=== PATIENT | female | born 1990 | race Caucasian/White ===

== ENCOUNTER 2018-05-08 14:21 | Emergency (ER) | payer SELFPAY ==
--- NOTE | 2018-05-08 16:26 | ER ---
Nurse's Notes [facility] Name: Joana Montes Age: 27 yrs Sex: Female : 1990 Arrival Date: 05/08/2018 Time: 14:22 Bed 10 Private MD: Diagnosis: Otalgia;Acute pharyngitis Presentation: 05/08 14:23 Presenting complaint: Patient states: last week i had a cough, i woke up this morning hj with sore throat and pain on both ears; its hard to swallow; denies fever;. Transition of care: patient was not received from another setting of care. Onset of symptoms was May 08, 2018. Risk Assessment: Do you want to hurt yourself or someone else? Patient reports no desire to harm self or others. Initial Sepsis Screen: Does the patient meet any 2 criteria? No. Patient's initial sepsis screen is negative. Does the patient have a suspected source of infection? No. Patient's initial sepsis screen is negative. Care prior to arrival: None. 14:23 Method Of Arrival: Ambulatory 14:23 Acuity: ZAFAR 4 Triage Assessment: 14:25 General: Appears in no apparent distress. uncomfortable, Behavior is calm, cooperative, hj appropriate for age. Pain: Complains of pain in throat. 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 - Social history:: Smoking status: Patient/guardian denies using tobacco, Patient/guardian denies using alcohol. - Ebola Screening: : Patient negative for fever greater than or equal to 101.5 degrees Fahrenheit, and additional compatible Ebola Virus Disease symptoms Patient denies exposure to infectious person Patient denies travel to an Ebola-affected area in the 21 days before illness onset. Screenin:24 Abuse screen: Denies threats or abuse. Denies injuries from another. Nutritional hj screening: No deficits noted. Tuberculosis screening: No symptoms or risk factors identified. Fall Risk None identified. Assessment: 14:25 Respiratory: Airway is patent Respiratory effort is even, unlabored, Breath sounds are hj clear. 15:20 General: Appears in no apparent distress. Behavior is calm, cooperative. Pain: iw Complains of pain in sore throat. Neuro: Level of Consciousness is awake, alert, obeys commands. Cardiovascular: Patient's skin is warm and dry. Respiratory: Airway is patent. Derm: Skin is intact, is healthy with good turgor. Musculoskeletal: Range of motion: intact in all extremities. 16:00 EENT: Throat is reddened. iw Vital Signs: 14:25 BP 123 / 87; Pulse 98; Resp 18; Temp 98.4(O); Pulse Ox 100% on R/A; Weight 72.57 kg; hj Height 5 ft. 9 in. (175.26 cm); Pain 6/10; 14:25 Body Mass Index 23.63 (72.57 kg, 175.26 cm) hj ED Course: 14:22 Patient arrived in ED. as 14:24 Triage completed. hj 14:25 Arm band placed on right wrist. hj 15:03 Drew Shane PA is PHCP. [facility] 15:04 Remigio Armijo MD is Attending Physician. [facility] 15:11 Adriana Camara, RN is Primary Nurse. iw 16:30 Patient has correct armband on for positive identification. iw 16:34 No provider procedures requiring assistance completed. Patient did not have IV access iw during this emergency room visit. Administered Medications: No medications were administered Outcome: 16:26 Discharge ordered by MD. jmm 16:34 Discharged to home ambulatory. iw 16:34 Condition: good 16:34 Discharge instructions given to patient, Instructed on discharge instructions, follow up and referral plans. medication usage, Demonstrated understanding of instructions, follow-up care, medications, Prescriptions given X 1. 16:35 Patient left the ED. iw Signatures: Drew Shane PA PA jmm Martinez, Amelia as Adriana Camara, RN RN Leonard Gama RN RN Corrections: (The following items were deleted from the chart) 14:28 14:25 Pulse 98bpm; Resp 18bpm; Pulse Ox 100% RA; Temp 98.4F Oral; 72.57 kg; Height 5 hj ft. 9 in.; BMI: 23.6; Pain 6/10; hj
--- NOTE | 2018-05-08 16:27 | EDPHYS ---
Physician Documentation [facility] Name: Joana Montes Age: 27 yrs Sex: Female : 1990 Arrival Date: 05/08/2018 Time: 14:22 Bed 10 Private MD: ED Physician Remigio Armijo HPI: 05/08 15:47 This 27 yrs old Female presents to ER via Ambulatory with complaints of Sore jmm Throat. 15:47 The patient presents with sore throat. Onset: The symptoms/episode began/occurred this jmm morning. This is a 27 year old female with no chronic medical conditions that presents to the ED with complaints of bilateral ear pain and sore throat beginning this morning. Patient states she had a cough last week. Patient denies fever. . 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 - Social history:: Smoking status: Patient/guardian denies using tobacco, Patient/guardian denies using alcohol. - Ebola Screening: : Patient negative for fever greater than or equal to 101.5 degrees Fahrenheit, and additional compatible Ebola Virus Disease symptoms Patient denies exposure to infectious person Patient denies travel to an Ebola-affected area in the 21 days before illness onset. ROS: 15:47 Constitutional: Negative for fever, chills, and weight loss, Cardiovascular: Negative [facility] for chest pain, palpitations, and edema. 15:47 ENT: Positive for ear pain, sore throat. 15:47 Respiratory: Positive for cough. 15:47 All other systems are negative. Exam: 15:47 Constitutional: This is a well developed, well nourished patient who is awake, alert, jmm and in no acute distress. Head/Face: atraumatic. 15:47 Neck: Trachea midline, Supple Chest/axilla: Normal chest wall appearance and motion. 15:47 ENT: TM's: bulging, bilaterally, erythema, is not appreciated, Posterior pharynx: Uvula: midline, erythema, that is mild, exudate, is not appreciated. 15:47 Cardiovascular: Rate: normal, Rhythm: regular. 15:47 Respiratory: the patient does not display signs of respiratory distress, Respirations: normal, Breath sounds: are clear throughout. 15:47 Abdomen/GI: Inspection: abdomen appears normal. 15:47 Back: ROM is normal. 15:47 Musculoskeletal/extremity: ROM: intact in all extremities. 15:47 Skin: Appearance: Color: normal in color. 15:47 Neuro: Orientation: is normal, Mentation: is normal, Memory: is normal, Motor: is normal. 15:47 Psych: Behavior/mood is pleasant, cooperative. Vital Signs: 14:25 BP 123 / 87; Pulse 98; Resp 18; Temp 98.4(O); Pulse Ox 100% on R/A; Weight 72.57 kg; hj Height 5 ft. 9 in. (175.26 cm); Pain 6/10; 14:25 Body Mass Index 23.63 (72.57 kg, 175.26 cm) MDM: 15:45 Patient medically screened. [facility] 16:24 Data reviewed: vital signs, nurses notes. Counseling: I had a detailed discussion with caio the patient and/or guardian regarding: the historical points, exam findings, and any diagnostic results supporting the discharge/admit diagnosis, the need for outpatient follow up, to return to the emergency department if symptoms worsen or persist or if there are any questions or concerns that arise at home. ED course: Patient is alert and non toxic in appearance in the ED. Symptoms appear due to a viral syndrome. Patient advised to follow up with pcp and otherwise given strict return precautions. patient understood and agrees with the plan of care. . 05/08 14:27 Order name: Strep 05/08 14:27 Order name: Group A Streptococcus Rapid Sc; Complete Time: 15:46 EDMS 05/08 15:08 Order name: Throat Culture EDMS Administered Medications: No medications were administered Disposition: 18:17 Co-signature as Attending Physician, Remigio Armijo MD I agree with the assessment and wa plan of care. Disposition: 05/08/18 16:26 Discharged to Home. Impression: Otalgia, Acute pharyngitis. - Condition is Stable. - Discharge Instructions: Pharyngitis, Sore Throat. - Prescriptions for Medrol (Tae) 4 mg Oral Tablets, Dose Pack - take 1 tablet by ORAL route as directed - follow package instructions; 1 packet. - Medication Reconciliation Form, Thank You Letter, Antibiotic Education, Prescription Opioid Use, Work release form form. - Follow up: Private Physician; When: 2 - 3 days; Reason: Recheck today's complaints, Continuance of care, Re-evaluation by your physician. Signatures: Dispatcher [employer] EDMS Drew Shane PA PA jmm Williams, Irene, RN RN iw Joaquin, Henry, RN RN Remigio Armijo MD MD wa Corrections: (The following items were deleted from the chart) 16:35 16:26 05/08/2018 16:26 Discharged to Home. Impression: Otalgia; Acute pharyngitis. iw Condition is Stable. Forms are Medication Reconciliation Form, Thank You Letter, Antibiotic Education, Prescription Opioid Use. Follow up: Private Physician; When: 2 - 3 days; Reason: Recheck today's complaints, Continuance of care, Re-evaluation by your physician. caio
[2018-05-08 16:50] VITALS: BP 123/87; TEMP 98.4; O2SAT 100
== END 2018-05-08 16:35 | disposition home or self-care (01) ==
LOC: ER 14:21
DX: J02.9 Acute pharyngitis, unspecified (principal); H92.09 Otalgia, unspecified ear
CPT/HCPCS: 87070; 87081; 99282

== ENCOUNTER 2019-02-25 17:13 | Emergency (ER) | payer SELFPAY ==
[2019-02-25] MEDS ORDERED: LIDOCAINE 1% MPF 5 ML VIAL ONE (18:02)
--- NOTE | 2019-02-25 18:21 | EDPHYS ---
Physician Documentation [facility] Name: Joana Montes Age: 28 yrs Sex: Female : 1990 Arrival Date: 02/25/2019 Time: 17:17 Bed 9 Private MD: ED Physician Adam Fields HPI: 02/25 17:49 This 28 yrs old Female presents to ER via Ambulatory with complaints of pkl Abscess. 17:58 The patient presents with an abscess of the abscess. Description: The affected area is pkl moderate sized, approximately 2 cm(s), fluctuant, tense. Onset: The symptoms/episode began/occurred 3 day(s) ago. Possible cause(s): unknown. Associated signs and symptoms: The patient has no apparent associated signs or symptoms. The patient has not experienced similar symptoms in the past. 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 - Social history:: Smoking status: Patient/guardian denies using tobacco, Patient uses alcohol, on a daily basis. - Ebola Screening: : No symptoms or risks identified at this time. ROS: 17:58 Eyes: Negative for injury, pain, redness, and discharge, ENT: Negative for injury, pkl pain, and discharge, Neck: Negative for injury, pain, and swelling, Cardiovascular: Negative for chest pain, palpitations, and edema, Respiratory: Negative for shortness of breath, cough, wheezing, and pleuritic chest pain, Abdomen/GI: Negative for abdominal pain, nausea, vomiting, diarrhea, and constipation, Back: Negative for injury and pain, : Negative for injury, bleeding, discharge, and swelling. 17:58 MS/extremity: Positive for pain, of the right upper posterior thigh, abscess. 17:58 Skin: Positive for abscess, of the right upper posterior thigh. 17:58 Neuro: Negative for altered mental status. Exam: 17:58 Head/Face: Normocephalic, atraumatic. Eyes: Pupils equal round and reactive to light, pkl extra-ocular motions intact. Lids and lashes normal. Conjunctiva and sclera are non-icteric and not injected. Cornea within normal limits. Periorbital areas with no swelling, redness, or edema. ENT: Nares patent. No nasal discharge, no septal abnormalities noted. Tympanic membranes are normal and external auditory canals are clear. Oropharynx with no redness, swelling, or masses, exudates, or evidence of obstruction, uvula midline. Mucous membranes moist. Neck: Trachea midline, no thyromegaly or masses palpated, and no cervical lymphadenopathy. Supple, full range of motion without nuchal rigidity, or vertebral point tenderness. No Meningismus. Chest/axilla: Normal chest wall appearance and motion. Nontender with no deformity. No lesions are appreciated. Cardiovascular: Regular rate and rhythm with a normal S1 and S2. No gallops, murmurs, or rubs. Normal PMI, no JVD. No pulse deficits. Respiratory: Lungs have equal breath sounds bilaterally, clear to auscultation and percussion. No rales, rhonchi or wheezes noted. No increased work of breathing, no retractions or nasal flaring. Abdomen/GI: Soft, non-tender, with normal bowel sounds. No distension or tympany. No guarding or rebound. No evidence of tenderness throughout. Back: No spinal tenderness. No costovertebral tenderness. Full range of motion. Neuro: Awake and alert, GCS 15, oriented to person, place, time, and situation. Cranial nerves II-XII grossly intact. Motor strength 5/5 in all extremities. Sensory grossly intact. Cerebellar exam normal. Normal gait. 17:58 Skin: abscess, that is moderate sized, approximately 2 cm(s), of the right upper posterior thigh. 17:58 Neuro: Orientation: is normal, Mentation: is normal, Cranial nerves: grossly normal, Cerebellar function: is grossly normal, normal finger to nose testing, heel to soto testing is normal, Motor: is normal, Gait: is steady. Vital Signs: 17:25 BP 124 / 86; Pulse 63; Resp 18; Temp 98; Pulse Ox 100% on R/A; Height 5 ft. 9 in. mg2 (175.26 cm); Procedures: 18:17 I \T\ D: Incision and drainage was performed for an abscess of the right posterior upper pkl thigh Prepped with Betadine, Anesthetized with 3 ml's 1% Lidocaine. Incised with #11 blade. Drained small amount purulent fluid. Packed with iodoform gauze, Dressing: sterile 4x4 gauze, the patient tolerated the procedure well. MDM: 17:49 Patient medically screened. pkl 18:17 Data reviewed: vital signs, nurses notes. pkl 02/25 18:31 Order name: Wound Culture iw Administered Medications: No medications were administered Disposition: 02/25/19 18:20 Discharged to Home. Impression: Abscess posterior right upper thigh. - Condition is Stable. - Prescriptions for Bactrim DS 800- 160 mg Oral Tablet - take 1 tablet by ORAL route every 12 hours for 7 days; 14 tablet. - Medication Reconciliation Form, Thank You Letter, Antibiotic Education, Prescription Opioid Use form. - Follow up: Leonard Martin MD; When: 2 - 3 days; Reason: Re-evaluation by your physician. - Problem is new. - Symptoms have improved. Signatures: Dispatcher [employer] EDMS Adam Fields MD MD pkl Adriana Camara RN RN iw Russ Guzmán RN RN mg2 Corrections: (The following items were deleted from the chart) 18:36 18:20 02/25/2019 18:20 Discharged to Home. Impression: Abscess posterior right upper iw thigh. Condition is Stable. Forms are Medication Reconciliation Form, Thank You Letter, Antibiotic Education, Prescription Opioid Use. Follow up: Leonard Martin; When: 2 - 3 days; Reason: Re-evaluation by your physician. Problem is new. Symptoms have improved. pkl
--- NOTE | 2019-02-25 18:21 | ER ---
Nurse's Notes [facility] Name: Joana Montes Age: 28 yrs Sex: Female : 1990 Arrival Date: 02/25/2019 Time: 17:17 Bed 9 Private MD: Diagnosis: Abscess posterior right upper thigh Presentation: 02/25 17:24 Presenting complaint: Patient states: i have abscess in my right thigh for 3 days now. mg2 probably its from a spider bite. Transition of care: patient was not received from another setting of care. Onset of symptoms was February 23, 2019. Risk Assessment: Do you want to hurt yourself or someone else? Patient reports no desire to harm self or others. Initial Sepsis Screen: Does the patient meet any 2 criteria? No. Patient's initial sepsis screen is negative. Does the patient have a suspected source of infection? No. Patient's initial sepsis screen is negative. Care prior to arrival: None. 17:24 Method Of Arrival: Ambulatory mg2 17:24 Acuity: ZAFAR 4 mg2 Triage Assessment: 18:30 General: Appears in no apparent distress. Behavior is calm. 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 - Social history:: Smoking status: Patient/guardian denies using tobacco, Patient uses alcohol, on a daily basis. - Ebola Screening: : No symptoms or risks identified at this time. Screenin:35 Abuse screen: Denies threats or abuse. Denies injuries from another. Nutritional iw screening: No deficits noted. Tuberculosis screening: No symptoms or risk factors identified. Fall Risk None identified. Assessment: 18:00 General: Appears in no apparent distress. Behavior is calm, cooperative. Pain: iw Complains of pain in buttocks. Neuro: Level of Consciousness is awake, alert, obeys commands, Oriented to person, place, time, situation. Derm: Abscess located on right gluteal fold is nickel sized. Musculoskeletal: Range of motion: intact in all extremities. Vital Signs: 17:25 BP 124 / 86; Pulse 63; Resp 18; Temp 98; Pulse Ox 100% on R/A; Height 5 ft. 9 in. mg2 (175.26 cm); ED Course: 17:17 Patient arrived in ED. mr 17:25 Triage completed. mg2 17:26 Arm band placed on. mg2 17:47 Adriana Camara, RN is Primary Nurse. iw 17:49 Adam Fields MD is Attending Physician. pkl 18:00 Patient has correct armband on for positive identification. iw 18:19 Leonard Martin MD is Referral Physician. pkl 18:35 Assist provider with I \T\ D: of an abscess on right Set up I\T\D tray. Performed by Adam Fields MD Culture sent to lab. Patient tolerated well. Patient did not have IV access during this emergency room visit. Administered Medications: No medications were administered Outcome: 18:20 Discharge ordered by . pkl 18:35 Discharged to home ambulatory. iw 18:35 Condition: good 18:35 Discharge instructions given to patient, Instructed on discharge instructions, follow up and referral plans. medication usage, Demonstrated understanding of instructions, follow-up care, medications, Prescriptions given X 1. 18:36 Patient left the ED. iw Addendum: 03/01/2019 07:39 Addendum: Culture Results: Positive wound culture. No further action required. Bacteria e b sensitive to prescribed antibiotic. Signatures: Adam Fields MD MD [facility] Na mr Adriana Camara, RN RN Hafsa Hollis Michele, RN RN mg2
[2019-02-25] MEDS ORDERED: SMZ./TMP. 800/160 MG TABLET ONE (18:36)
[2019-02-25 19:40] VITALS: BP 124/86; TEMP 98; O2SAT 100
== END 2019-02-25 18:36 | disposition home or self-care (01) ==
LOC: ER 17:13
PROC: 0J9L0ZZ Drainage of Right Upper Leg Subcutaneous Tissue and Fascia, Open Approach (ICD-10-PCS; principal; 2019-02-25)
DX: L02.415 Cutaneous abscess of right lower limb (principal)
CPT/HCPCS: 87070; 87077; 87186; 87205; 99283

== ENCOUNTER 2019-06-06 16:39 | Emergency (ER) | payer SELFPAY ==
[2019-06-06] MEDS ORDERED: LIDOCAINE 1% MPF 5 ML VIAL ONE (17:03)
[2019-06-06] MEDS ORDERED: TETANUS & DIPHTHERIA TOX,ADULT 0.5 ML VIAL ONE (17:04)
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
[2019-06-06 17:52] VITALS: BP 104/67; TEMP 97.7; O2SAT 99
== END 2019-06-06 17:40 | disposition home or self-care (01) ==
LOC: ER 16:39
PROC: 0JQH0ZZ Repair Left Lower Arm Subcutaneous Tissue and Fascia, Open Approach (ICD-10-PCS; principal; 2019-06-06)
DX: S51.812A Laceration without foreign body of left forearm, initial encounter (principal); Y04.2XXA Assault by strike against or bumped into by another person, initial encounter; Y93.9 Activity, unspecified; Y92.009 Unspecified place in unspecified non-institutional (private) residence as the place of occurrence of the external cause; Z23 Encounter for immunization
CPT/HCPCS: 90471; 90714; 99283

== ENCOUNTER 2020-03-10 00:23 | Emergency (ER) | payer SELFPAY ==
[2020-03-10] MEDS ORDERED: KETOROLAC 30 MG/ML INJ ONE (00:59)
[2020-03-10] MEDS ORDERED: dexAMETHasone 4 MG TAB ONE (00:59)
[2020-03-10] MEDS ORDERED: methocarbamoL 500 MG TAB ONE (00:59)
--- NOTE | 2020-03-10 01:47 | EDPHYS ---
Physician Documentation [facility] Name: Joana Montes Age: 29 yrs Sex: Female : 1990 Arrival Date: 03/10/2020 Time: 00:24 Bed 23 Private MD: ED Physician Rodrick Barksdale HPI: 03/10 00:40 This 29 yrs old Female presents to ER via Ambulatory with complaints of Arm ps1 Pain. 00:40 patient states that she has pain from her neck to her hands associated with numbness or ps1 decreased sensation below the elbow. Atraumatic. Laying in bed watching a movie when symptoms started. No fever or other FND. . Historical: - Allergies: 00:37 No Known Allergies; em - PMHx: 00:37 None; em - PSHx: 00:37 ; em - Immunization history:: Adult Immunizations up to date. - Social history:: Smoking status: Patient reports the use of cigarette tobacco products, denies chronic smoking, but will smoke occasionally. ROS: 00:40 Constitutional: Negative for fever, chills, and weight loss, Eyes: Negative for injury, ps1 pain, redness, and discharge, Cardiovascular: Negative for chest pain, palpitations, and edema, Respiratory: Negative for shortness of breath, cough, wheezing, and pleuritic chest pain, Abdomen/GI: Negative for abdominal pain, nausea, vomiting, diarrhea, and constipation, MS/Extremity: Negative for injury and deformity, Skin: Negative for injury, rash, and discoloration. 00:40 Neck: Positive for tenderness, of the right trapezius. 00:40 Neuro: Positive for numbness, of the right hand, right wrist and palmar aspect of right forearm. Exam: 00:40 Constitutional: This is a well developed, well nourished patient who is awake, alert, ps1 and in no acute distress. Head/Face: Normocephalic, atraumatic. Cardiovascular: Regular rate and rhythm. No gallops, murmurs, or rubs. Normal PMI, no JVD. No pulse deficits. Respiratory: Lungs have equal breath sounds bilaterally, clear to auscultation and percussion. No rales, rhonchi or wheezes noted. No increased work of breathing, no retractions or nasal flaring. Abdomen/GI: Soft, non-tender, with normal bowel sounds. No distension or tympany. No guarding or rebound. No evidence of tenderness throughout. Skin: Warm, dry with normal turgor. Normal color with no rashes, no lesions, and no evidence of cellulitis. 00:40 Neuro: Cranial nerves: grossly normal, Motor: is normal, Sensation: numbness, that is mild, of the palmar aspect of right forearm and right wrist and right hand. Vital Signs: 00:35 BP 143 / 99; Pulse 76; Resp 18; Pulse Ox 99% on R/A; Weight 77.11 kg; Height 5 ft. 9 em in. (175.26 cm); Pain 0/10; 00:39 Temp 98.2(O); em 00:35 Body Mass Index 25.10 (77.11 kg, 175.26 cm) em MDM: 00:57 Patient medically screened. ps1 01:47 Differential diagnosis: radiculopathy, ulnar neuropathy, stroke (unlikely), trap spasm, ps1 and other. Data reviewed: vital signs, nurses notes, radiologic studies, and as a result, I will discharge patient. Counseling: I had a detailed discussion with the patient and/or guardian regarding: the historical points, exam findings, and any diagnostic results supporting the discharge/admit diagnosis, radiology results, the need for outpatient follow up, a neurologist. 03/10 00:39 Order name: CT C Spine ps1 Administered Medications: 00:48 Drug: Decadron 8 mg Route: PO; em 01:58 Follow up: Response: No adverse reaction; Marked relief of symptoms; Pain is decreased em 00:48 Drug: TORadol - Ketorolac 15 mg Route: IM; Site: left deltoid; em 01:58 Follow up: Response: No adverse reaction; Marked relief of symptoms; Pain is decreased em 00:48 Drug: Robaxin 750 mg Route: PO; em 01:59 Follow up: Response: No adverse reaction; Marked relief of symptoms; Pain is decreased em Disposition: 03/10/20 01:46 Discharged to Home. Impression: Cervical radiculopathy, Ulnar mononeuropathy. - Condition is Stable. - Discharge Instructions: Cervical Radiculopathy. - Prescriptions for Anaprox DS 550 mg Oral Tablet - take 1 tablet by ORAL route every 12 hours As needed; 20 tablet. Robaxin 500 mg Oral Tablet - take 2 tablet by ORAL route every 6 hours As needed; 40 tablet. Medrol (Tae) 4 mg Oral Tablets, Dose Pack - take 1 tablet by ORAL route as directed - follow package instructions; 1 packet. - Medication Reconciliation Form, Thank You Letter, Antibiotic Education, Prescription Opioid Use form. - Follow up: Steven Coon MD; When: 24 Hours; Reason: Recheck today's complaints, Continuance of care, Re-evaluation by your physician. Follow up: Emergency Department; When: As needed; Reason: Trouble breathing, Worsening of condition. - Problem is new. - Symptoms have improved. Signatures: Dispatcher [employer] Gigi Walker RN RN Rodrick Calvert MD MD ps1 Corrections: (The following items were deleted from the chart) 01:59 01:46 03/10/2020 01:46 Discharged to Home. Impression: Cervical radiculopathy; Ulnar em mononeuropathy. Condition is Stable. Forms are Medication Reconciliation Form, Thank You Letter, Antibiotic Education, Prescription Opioid Use. Follow up: Steven Coon; When: 24 Hours; Reason: Recheck today's complaints, Continuance of care, Re-evaluation by your physician. Follow up: Emergency Department; When: As needed; Reason: Trouble breathing, Worsening of condition. Problem is new. Symptoms have improved. ps1
--- NOTE | 2020-03-10 01:47 | ER ---
Nurse's Notes [facility] Name: Joana Montes Age: 29 yrs Sex: Female : 1990 Arrival Date: 03/10/2020 Time: 00:24 Bed 23 Private MD: Diagnosis: Cervical radiculopathy;Ulnar mononeuropathy Presentation: 03/10 00:35 Chief complaint: Patient states: right sided neck and right arm pain that started em tonight while laying in bed, reports numbness in the right arm from the elbow down, denies any trauma. Coronavirus screen: Client denies travel out of the [place] in the last 14 days. Ebola Screen: Patient negative for fever greater than or equal to 101.5 degrees Fahrenheit, and additional compatible Ebola Virus Disease symptoms Patient denies exposure to infectious person. Patient denies travel to an Ebola-affected area in the 21 days before illness onset. No symptoms or risks identified at this time. Initial Sepsis Screen: Does the patient meet any 2 criteria? No. Patient's initial sepsis screen is negative. Does the patient have a suspected source of infection? No. Patient's initial sepsis screen is negative. Risk Assessment: Do you want to hurt yourself or someone else? Patient reports no desire to harm self or others. Onset of symptoms was March 10, 2020. 00:35 Method Of Arrival: Ambulatory em 00:35 Acuity: ZAFAR 4 em Historical: - Allergies: 00:37 No Known Allergies; em - PMHx: 00:37 None; em - PSHx: 00:37 ; em - Immunization history:: Adult Immunizations up to date. - Social history:: Smoking status: Patient reports the use of cigarette tobacco products, denies chronic smoking, but will smoke occasionally. Screenin:38 Abuse screen: Denies threats or abuse. Nutritional screening: No deficits noted. em Tuberculosis screening: No symptoms or risk factors identified. Fall Risk None identified. Assessment: 00:35 General: Appears in no apparent distress. uncomfortable, Behavior is calm, cooperative, em appropriate for age, Denies fever. Pain: Denies pain. Neuro: Level of Consciousness is awake, alert, obeys commands, Oriented to person, place, time, situation, Appropriate for age Numbness in right arm. Cardiovascular: Capillary refill < 3 seconds Patient's skin is warm and dry. Respiratory: Airway is patent Respiratory effort is even, unlabored, Respiratory pattern is regular, symmetrical. Derm: Skin is intact, is healthy with good turgor, Skin is pink, warm \T\ dry. Musculoskeletal: Capillary refill < 3 seconds, Range of motion: intact in all extremities. 00:55 Reassessment: wheeled to CT. em 01:50 Reassessment: Patient appears in no apparent distress at this time. Patient and/or em family updated on plan of care and expected duration. Pain level reassessed. Patient is alert, oriented x 3, equal unlabored respirations, skin warm/dry/pink. Patient states feeling better. Patient states symptoms have improved. Vital Signs: 00:35 BP 143 / 99; Pulse 76; Resp 18; Pulse Ox 99% on R/A; Weight 77.11 kg; Height 5 ft. 9 em in. (175.26 cm); Pain 0/10; 00:39 Temp 98.2(O); em 00:35 Body Mass Index 25.10 (77.11 kg, 175.26 cm) em ED Course: 00:24 Patient arrived in ED. cl3 00:27 Gigi Anna, MARK is Primary Nurse. em 00:31 Rodrick Barksdale MD is Attending Physician. ps1 00:37 Triage completed. em 00:37 Arm band placed on. em 00:37 Patient has correct armband on for positive identification. Bed in low position. Call em light in reach. Side rails up X2. 01:14 CT C Spine In Process Unspecified. EDMS 01:45 Steven Coon MD is Referral Physician. ps1 01:51 No provider procedures requiring assistance completed. Patient did not have IV access em during this emergency room visit. Administered Medications: 00:48 Drug: Decadron 8 mg Route: PO; em 01:58 Follow up: Response: No adverse reaction; Marked relief of symptoms; Pain is decreased em 00:48 Drug: TORadol - Ketorolac 15 mg Route: IM; Site: left deltoid; em 01:58 Follow up: Response: No adverse reaction; Marked relief of symptoms; Pain is decreased em 00:48 Drug: Robaxin 750 mg Route: PO; em 01:59 Follow up: Response: No adverse reaction; Marked relief of symptoms; Pain is decreased em Outcome: 01:46 Discharge ordered by . ps1 01:56 Discharged to home ambulatory. em 01:56 Condition: improved 01:56 Discharge instructions given to patient, Instructed on discharge instructions, follow up and referral plans. medication usage, Demonstrated understanding of instructions, follow-up care, medications, Prescriptions given X 3. 01:59 Patient left the ED. em Signatures: Dispatcher [employer] Gigi Walker RN RN em Rodrick Barksdale MD MD ps1 Altagracia Dwyer cl3
[2020-03-10 02:19] VITALS: BP 143/99; O2SAT 99
[2020-03-10 02:20] VITALS: TEMP 98.2
--- NOTE | 2020-03-10 12:00 | RAD REPORT ---
EXAM DESCRIPTION: CT - C Spine Wo Jeanmarie - 03/10/2020 6:36 am CLINICAL HISTORY: The patient is 29 years old and is Female; radiculopathy right. ;Numbness/tingling TECHNIQUE: Axial computed tomography images of the cervical spine without intravenous contrast. Sa gittal and coronal reformatted images were created and reviewed. This CT exam was performed using o ne or more of the following dose reduction techniques: automated exposure control, adjustment of th e mA and/or kV according to patient size, and/or use of iterative reconstruction technique. COMPARISON: No relevant prior studies available. FINDINGS: VERTEBRAE: The vertebral body heights and alignment are maintained. No acute fracture. DISCS/SPINAL CANAL/NEURAL FORAMINA: A mild posterior disc osteophyte complex at C5-C6 is present . There is no significant canal stenosis at this level. No canal stenosis is seen. There is no signif icant neural foraminal narrowing. SOFT TISSUES: The soft tissues are normal. IMPRESSION: Minimal spondylosis of the cervical spine at C5-C6. There is no significant canal stenos is or neural foraminal narrowing however. If there is continued concern, MRI should be considered. Electronically signed by: Radha Gr MD 03/10/2020 1:20 AM [employer] Due to temporary technical issues with the PACS/Fluency reporting system, reports are being signed by the in house radiologist without review as a courtesy to ensure prompt reporting. The interpreting r adiologist is fully responsible for the content of the report.
== END 2020-03-10 01:59 | disposition home or self-care (01) ==
LOC: ER 00:23
DX: M54.12 Radiculopathy, cervical region (principal); F17.210 Nicotine dependence, cigarettes, uncomplicated
CPT/HCPCS: 72125; 96372; 99283; J8540